=== PATIENT | male | born 1970 | race Caucasian/White ===

== ENCOUNTER 2021-12-19 12:45 | Outpatient (CLI) | payer BC, MEDICAID, SELFPAY ==
--- NOTE | 2021-12-19 13:41 | XR_ITS ---
WS: [id number] XR lumbar spine 2-3V* [id number] REASON FOR EXAM: DORSALGIA FINDINGS: Mild rotatory scoliosis convex left. No significant vertebral body abnormality. Narrowing of the intervertebral disc spaces L3-S1 with lumbar vertebral osteophytosis. No spondylolysis. 3 to 4 mm of anterolisthesis of L3 in relation to L2. 4 to 5 mm of anterolisthesis of L4 in relation to L3. 4 mm of anterolisthesis of L5 in relation to L4. Mild to moderate degenerative change in the facet joints L4-S1. XR/XR lumbar spine 2-3V* [id number] IMPRESSION: Degenerative spondylosis of the lumbar spine as above.
== END 2021-12-19 12:46 | disposition home or self-care (01) ==
PROVIDERS: PCP Nurse Practitioner Family; Visit Provider Nurse Practitioner Family
DX: M47.896 Other spondylosis, lumbar region (principal); M54.50 Low back pain, unspecified; G89.29 Other chronic pain
CPT/HCPCS: 72100

== ENCOUNTER 2022-05-30 14:21 | Outpatient (CLI) | payer BC, SELFPAY ==
--- NOTE | 2022-05-30 | USCV_ITS ---
Jayson Velasquez Age: 51 Gender: M : 1970 Exam Date: 05/30/2022 15:14 Ordering Phys: Miranda Jolly NP Technologist: Maddie Montelongo Exam Location: [facility] [place] Indication: HTN BP: / HR: 98 Rhythm: Sinus Technical Quality: Adequate MEASUREMENTS (Male / Female) Normal Values 2D ECHO LV Diastolic Diameter PLAX 3.7 cm 4.2 - 5.9 / 3.9 - 5.3 cm LV Systolic Diameter PLAX 3.0 cm LV Chamber Size 3.5 cm IVS Diastolic Thickness 1.1 cm 0.6 - 1.0 / 0.6 - 0.9 cm IVS Systolic Thickness 1.2 cm LVPW Diastolic Thickness 1.4 cm 0.6 - 1.0 / 0.6 - 0.9 cm LVPW Systolic Thickness 1.5 cm RV Chamber Size 2.0 cm LVOT Diameter 2.1 cm LV Ejection Fraction 2D Teich 44.5 % LV Ejection Fraction MOD 2C 64.0 % LV Ejection Fraction 2C AL 64.2 % LA Diameter 3.5 cm LA Width 3.3 cm LA Height 3.5 cm RA Width 2.7 cm RA Height 3.5 cm Aorta at Sinotubular Diameter 2.9 cm IVC Diameter 1.8 cm M-MODE Aortic Annulus Diameter 2.6 cm LA Ao Ratio MM 1.5 MV E Point Septal Separation 0.9 cm DOPPLER AV Peak Velocity 120.0 cm/s LVOT Peak Velocity 80.0 cm/s AV Area Cont Eq vti 2.8 cm squared AV Area Cont Eq pk 2.2 cm squared MV Area PHT 7.6 cm squared Mitral E to A Ratio 0.7 MV E' Velocity 36.5 cm/s Mitral E to MV E' Ratio 7.6 Mitral E to LV E' Lateral Ratio 6.9 Mitral E to LV E' Septal Ratio 8.7 TR Peak Velocity 81.8 cm/s TR Peak Gradient 2.7 mmHg TR Mean Velocity 58.4 cm/s TR Mean Gradient 1.5 mmHg TR Velocity Time Integral 24.5 cm TV Peak E Velocity 70.0 cm/s Right Atrial Pressure 3.0 mmHg Pulmonary Artery Systolic Pressu 5.7 mmHg RV Acceleration Time 0.1 s RV Ejection Time 0.3 s RV AcT/ET 0.4 FINDINGS Left Ventricle Normal left ventricular size and wall thickness, moderately decreased left ventricular systolic function. Global left ventricular hypokinesis. Left ventricular ejection fraction is estimated at 45 %. Grade I/IV diastolic dysfunction (abnormal relaxation filling pattern), normal to mildly elevated filling pressures. Right Ventricle The right ventricle is normal in size and function. Right Atrium The right atrium is normal in size. Left Atrium The left atrium is normal in size. Mitral Valve Structurally normal mitral valve without significant stenosis or prolapse. There is no mitral regurgitation. Aortic Valve Structurally normal aortic valve without significant sclerosis or stenosis. There is no aortic regurgitation. Tricuspid Valve Structurally normal tricuspid valve without significant stenosis or regurgitation. Pulmonary artery systolic pressure is normal. Pulmonic Valve Structurally normal pulmonic valve without significant stenosis. There is no pulmonic regurgitation. Pericardium Normal pericardium without effusion. Aorta Normal ascending aorta dimension. IVC The inferior vena cava appears normal. CONCLUSIONS 1-Normal left ventricular size and wall thickness, moderately decreased left ventricular systolic function. Global left ventricular hypokinesis. Left ventricular ejection fraction is estimated at 45 %. Grade I/IV diastolic dysfunction (abnormal relaxation filling pattern), normal to mildly elevated filling pressures. 2-There is no pericardial effusion. 3-No significant valve abnormalities. 4-Right atrial pressure is around 5 mm of mercury. Guillermina Reich MD (Electronically Signed) Final Date: 30 May 2022 20:20 S
== END 2022-05-30 14:22 | disposition home or self-care (01) ==
LOC: RAD 14:26
PROVIDERS: PCP Nurse Practitioner Family; Visit Provider Nurse Practitioner Family
DX: I10 Essential (primary) hypertension (principal)
CPT/HCPCS: 93306

== ENCOUNTER 2022-10-28 18:43 | Emergency (ER) | payer BC, MEDICAID, SELFPAY ==
[2022-10-28 18:48] VITALS: BP 136/83; PULSE 112; RESP 18; TEMP 36.7; O2SAT 97; BMI 27.4
--- NOTE | 2022-10-28 19:01 | W.ED.ABDPA2 ---
HPI - Abdominal Pain General: Chief Complaint: Abdominal Pain Stated Complaint: N\V Time Seen by Provider: 10/28/22 19:01 History of Present Illness: 52-year-old male patient comes in for 3-day history of nausea and vomiting with occasional diarrhea stool. Patient denies any fever. Patient has a history of hepatitis C, high blood pressure, depression, chronic back pain. Patient appears mildly unwell but not toxic. Patient appears in mild to no pain. Patient reports difficulty holding fluids down. Patient has a history of gallbladder removal. Patient does admit to a history of intravenous drug and alcohol use many years ago. Patient is here with his mother. Associated Symptoms: Reports diarrhea, nausea and vomiting Review of Systems General: Reports: 10 or more systems reviewed and unremarkable except in HPI and below Card: Denies: chest pain Resp: Denies: productive cough GI: Reports: nausea, vomiting and diarrhea : Denies: difficulty urinating [facility] ED PFSH: Medical History (Updated 10/28/22 @ 21:17 by JERMAINE Barreto) Psychiatric care Social History (Updated 02/11/22 @ 12:53 by Moses Michele LPN) Smoking and tobacco status: former smoker Quit status (tobacco): has quit using tobacco Year quit tobacco: 2011. Second hand smoke exposure: No Smoking risk assessment/counseling performed?: No Alcohol intake: former Desire information about alcohol rehabilitation?: No Counseling given: No Substance/Drug Use: former Date of last use: 2011 Desire information about substance/drug rehabilitation?: No Counseling given: No Physical Exam Const: COMMON NORMALS: alert HENMT: COMMON NORMALS: normocephalic HEAD & SCALP: normocephalic Neck/C-Spine: COMMON NORMALS: full ROM Resp: COMMON NORMALS: normal respiratory effort and clear to auscultation bilaterally AUSCULTATION: clear to auscultation bilaterally Cardio: COMMON NORMALS: regular rate and regular rhythm RATE: regular rate RHYTHM: regular rhythm GI: COMMON NORMALS: Soft to palpation PALPATION: Yes Soft to palpation : COMMON NORMALS: Yes no CVA tenderness BLADDER/KIDNEY EXAM: Yes no CVA tenderness Back/Pelvis: COMMON NORMALS: no CVA tenderness and thoracic and lumbar spine normal to inspection Extremity: COMMON NORMALS: normal to inspection Neuro: SENSORIUM/ORIENTATION: Yes alert Skin: COMMON NORMALS: turgor normal GENERAL SKIN EXAM: turgor normal Course ED course: 2039, reviewed labs with Dr. Simpson, intending physician. Patient had some mild elevation in bilirubin and a low white count of 1.9. He noted that patient was not neutrophilic and labs were not that abnormal especially patient's known history of hepatitis. We were considering just discharging patient with antiemetics but I reassessed patient he did have some mid epigastric tenderness still and some persistent nausea. I decided to go ahead and do a CT abdomen and pelvis for further evaluation of abdominal pain with nausea and vomiting due to the concern for infectious process or other abnormality. Vital Signs: Vital signs: Vital Signs Temperature 98.1 F 10/28/22 18:48 Pulse Rate 84 10/28/22 20:32 Respiratory Rate 24 H 10/28/22 20:32 Blood Pressure 140/86 10/28/22 20:32 Pulse Oximetry 98 10/28/22 20:32 Oxygen Delivery Me thod Nasal Cannula 10/28/22 20:32 Oxygen Flow Rate 1 10/28/22 20:32 MDM - Abdominal Pain Medical Decision Making 52-year-old male patient comes in today for complaints of nausea and vomiting for 3 days. On exam abdomen soft with mild generalized tenderness. No edema. Vital signs are normal except for some mild elevation in pulse at 112. Differential diagnosis includes gastroenteritis, colitis, gastritis, pancreatitis. Laboratory values noted a white count of 1.9, sodium was 134, potassium was 3.4, and a bilirubin of 1.7. Urinalysis was clean. CT was performed due to some mild epigastric tenderness and abnormal labs. Patient was noted to have some marked splenomegaly, hepatic steatosis, postcholecystectomy without biliary dilation, and some tiny inguinal hernias. Patient was hydrated with 2 L of IV fluids with improvement of symptoms. Recommended patient follow-up with primary care for repeat labs at his next scheduled appointment next . Patient was written for some Zofran for nausea and vomiting. After discussion with Dr. Simpson about patient's abnormality labs he recommended go ahead and adding a tick panel to rule out any tickborne illnesses for abnormal white count. Patient reported understanding of care plan and need for follow-up. I believe the labs abnormalities are most likely due to a viral syndrome such as a gastroenteritis. Lab Data 10/28/22 19:14 10/28/22 19:14 Labs/Radiology: Radiology Impressions Abdomen/Pelvis CT 10/28/22 20:41 IMPRESSION: 1. Marked splenomegaly, measuring about 18.5 cm in craniocaudad diameter. 2. A 2-3 cm peripheral hypodensity in the medial spleen. Nonspecific. Has a somewhat bandlike appearance, and could represent a splenic infarct. No perisplenic fluid or hemorrhage and no history of trauma to suggest a splenic injury. 3. Questionable hepatic steatosis, though difficult to be certain on this contrast only study. 4. Status post cholecystectomy. No biliary dilatation. 5. Tiny bilateral fat containing inguinal hernias. Laboratory Results WBC 1.9 10^3/uL (4.0-10.0) L 10/28/22 19:14 RBC 5.02 10^6/uL (4.1-5.3) 10/28/22 19:14 Hgb 15.8 g/dL (11.7-16.6) 10/28/22 19:14 Hct 43.0 % (42.0-52.0) 10/28/22 19:14 MCV 85.7 fl (80-94) 10/28/22 19:14 MCH 31.5 pg (28.0-34.0) 10/28/22 19:14 MCHC 36.7 g/dL (30.0-36.0) H 10/28/22 19:14 RDW 15.4 % (12.1-15.1) H 10/28/22 19:14 Plt Count 81 10^3/cmm (130-400) L 10/28/22 19:14 MPV 9.9 fL (7.4-10.4) 10/28/22 19:14 Neut % (Auto) 53.0 % 10/28/22 19:14 Lymph % (Auto) 32.6 % 10/28/22 19:14 [place] % (Auto) 11.9 % 10/28/22 19:14 Eos % (Auto) 0.5 % 10/28/22 19:14 Baso % (Auto) 1.0 % 10/28/22 19:14 Neut # (Auto) 1.02 10^3/uL (1.8-7.7) L 10/28/22 19:14 Lymph # (Auto) 0.6 10^3/uL (0.8-4.8) L 10/28/22 19:14 [place] # (Auto) 0.2 10^3/uL (0.2-0.9) 10/28/22 19:14 Eos # (Auto) 0.0 10^3/uL (0.0-0.8) 10/28/22 19:14 Baso # (Auto) 0.0 10^3/uL (0.0-0.1) 10/28/22 19:14 Nucleated RBC % (auto) 0 % 10/28/22 19:14 Nucleated RBCs # 0.0 /100WBC 10/28/22 19:14 Sodium 134 mmol/L (136-145) L 10/28/22 19:14 Potassium 3.4 mmol/L (3.5-5.1) L 10/28/22 19:14 Chloride 91 mmol/L (98-107) L 10/28/22 19:14 Carbon Dioxide 29 mmol/L (22-29) 10/28/22 19:14 Anion Gap 17.4 (5-19) 10/28/22 19:14 BUN 16 mg/dL (6-20) 10/28/22 19:14 Creatinine 0.8 mg/dL (0.7-1.2) 10/28/22 19:14 GFR Calculation 102.3 mL/min (90-130) 10/28/22 19:14 Glucose 117 mg/dL (65-115) H 10/28/22 19:14 Calculated Osmolality 280 mOsm/kg (285-295) L 10/28/22 19:14 Calcium 9.8 mg/dL (8.5-10.5) 10/28/22 19:14 Total Bilirubin 1.7 mg/dL (0.15-1.2) H 10/28/22 19:14 AST 65 U/L (0-40) H 10/28/22 19:14 ALT 61 U/L (0-41) H 10/28/22 19:14 Alkaline Phosphatase 76 U/L (40-130) 10/28/22 19:14 Total Protein 7.9 g/dL (6.6-8.7) 10/28/22 19:14 Albumin 4.4 g/dL (3.5-5.2) 10/28/22 19:14 Globulin 3.5 g/dL (1.3-4.6) 10/28/22 19:14 Lipase 13 U/L (13-60) 10/28/22 19:14 Urine Color Yellow (Yellow) 10/28/22 19:56 Urine Appearance Clear (CLEAR) 10/28/22 19:56 Urine pH 6 (5-7) 10/28/22 19:56 Ur Specific [place] 1.010 (1.005-1.030) 10/28/22 19:56 Urine Protein Neg (Negative) 10/28/22 19:56 Urine Glucose (UA) Norm (Normal) 10/28/22 19:56 Urine Ketones Negative (Negative) 10/28/22 19:56 Urine Blood Neg (Negative) 10/28/22 19:56 Urine Nitrate Negative (Negative) 10/28/22 19:56 Urine Bilirubin Neg (Negative) 10/28/22 19:56 Urine Urobilinogen Norm mg/dL (Negative) 10/28/22 19:56 Ur Leukocyte Esterase Negative (Negative) 10/28/22 19:56 Discharge Plan Discharge Patient Disposition: Home Clinical Impression: Leukopenia Nausea & vomiting Qualifiers: Vomiting type: unspecified Qualified Code(s): R11.2 - Nausea with vomiting, unspecified Condition: Stable Prescriptions: New ondansetron 4 mg tablet,disintegrating 4 mg PO Q8H PRN (Reason: nausea and vomiting) Qty: 10 0RF No Action hydrochlorothiazide 25 mg tablet 25 mg PO DAILY diphenhydramine HCl 50 mg capsule 50 mg PO QID PRN gabapentin 300 mg capsule 300 mg PO BID tizanidine 2 mg capsule 2 mg PO DAILY PRN hydroxyzine HCl 50 mg tablet 50 mg PO .HS PRN (Reason: insomnia/anxiety) Qty: 30 2RF buspirone 7.5 mg tablet 7.5 mg PO BID Qty: 60 2RF sertraline 100 mg tablet 100 mg PO DAILY Qty: 30 2RF Discharge Orders: Discharge ED (Routine); Ordered 10/28/22 Ordered By: Isak Jackson Referrals: Miranda Jolly NP [Primary Care Provider] - Discharge Diet: Usual diet Discharge Activity: Increase activity as tolerated Patient Instructions: Abdominal Pain (ED) Activity Restrictions/Additional Instructions: Start with clear liquid diet until nausea and vomiting and pain resolves. Drink frequent sips of fluid. Drinking electrolyte solution like Pedialyte or diluted Gatorade. Follow-up with primary care for further instructions and repeat lab work. Return to ER for high fever, blood in vomit or stool, or new concerns. Coding Level of Care Code ED Multifocal Button Generator for Conchita Recinos
[2022-10-28 19:29] LABS: Eosinophils % 0.5 %; Hemoglobin 15.8 g/dL (11.7-16.6); Lymphocytes # 0.6 10^3/uL (0.8-4.8); Lymphocytes % 32.6 %; Mean Corpuscular HGB Conc 36.7 g/dL (30.0-36.0); Mean Corpuscular Hemoglobin 31.5 pg (28.0-34.0); Mean Corpuscular Volume 85.7 fl (80-94); Mean Platelet Volume 9.9 fL (7.4-10.4); Monocytes # 0.2 10^3/uL (0.2-0.9); Monocytes % 11.9 %; Neutrophils # 1.02 10^3/uL (1.8-7.7); Nucleated Red Blood Cells % 0 %; Platelet Count 81 10^3/cmm (130-400); Red Blood Count 5.02 10^6/uL (4.1-5.3); Red Cell Distribution Width 15.4 % (12.1-15.1); White Blood Count 1.9 10^3/uL (4.0-10.0)
[2022-10-28 19:42] LABS: Alanine Aminotransferase 61 U/L (0-41); Albumin Level 4.4 g/dL (3.5-5.2); Alkaline Phosphatase 76 U/L (40-130); Anion Gap 17.4 (5-19); Aspartate Amino Transferase 65 U/L (0-40); Blood Urea Nitrogen 16 mg/dL (6-20); Calcium 9.8 mg/dL (8.5-10.5); Carbon Dioxide 29 mmol/L (22-29); Chloride 91 mmol/L (98-107); Globulin 3.5 g/dL (1.3-4.6); Glomerular Filtration Rate 102.3 mL/min (90-130); Glucose 117 mg/dL (65-115); Lipase 13 U/L (13-60); Osmolality Calculated 280 mOsm/kg (285-295); Potassium 3.4 mmol/L (3.5-5.1); Sodium 134 mmol/L (136-145); Total Bilirubin 1.7 mg/dL (0.15-1.2); Total Protein 7.9 g/dL (6.6-8.7)
[2022-10-28] MEDS: ondansetron 2 mg/ML SDV 2 mL 4 MG IVP (19:43)
[2022-10-28] MEDS: lactated ringers 1,000 ML 999 ML IV (19:46)
[2022-10-28 19:57] LABS: Slide Review Slide Review Perform
[2022-10-28 20:01] LABS: Add Urine Microscopic? NO; Charge for UA Resulting for Rev
[2022-10-28 20:05] LABS: Bilirubin Urine Neg (Negative); Blood Urine Neg (Negative); Glucose Urine UA Norm (Normal); Ketones Urine Negative (Negative); Leukocyte Esterase Urine Negative (Negative); Nitrate Urine Negative (Negative); Protein Urine Neg (Negative); Urine Appearance Clear (CLEAR); Urine Color Yellow (Yellow); Urobilinogen Urine Norm (Negative); pH Urine 6 (5-7)
[2022-10-28 20:32] VITALS: BP 140/86; PULSE 84; RESP 24; O2SAT 98
--- NOTE | 2022-10-28 20:41 | CTR_ITS ---
PROCEDURE INFORMATION: Exam: CT Abdomen And Pelvis With Contrast Exam date and time: 10/28/2022 8:49 PM Age: 52 years old Clinical indication: Pain and abnormal findings; Abnormal lab test; Nausea and vomiting; Abdominal pain; Prior surgery; Surgery date: 6+ months; Surgery type: Gb; Patient HX: Epigastric pain with n/v. Elevated liver enzymes. ; Additional info: Abd pain, abnormal liver enzymes TECHNIQUE: Imaging protocol: Computed tomography of the abdomen and pelvis with contrast. Radiation optimization: All CT scans at this facility use at least one of these dose optimization techniques: automated exposure control; mA and/or kV adjustment per patient size (includes targeted exams where dose is matched to clinical indication); or iterative reconstruction. Contrast material: OMNI 350; Contrast volume: 100 ml; Contrast route: INTRAVENOUS (IV); REPORTING DATA: Count of CT and Cardiac NM exams in prior 12 months: This patient has received 0 known CTs and 0 known cardiac nuclear medicine studies in the 12 months prior to the current study. COMPARISON: CR XR lumbar spine 2-3V* [id number] 12/19/2021 1:58 PM RADIATION DOSE METRICS: Total DLP (mGy-cm): 757.88 FINDINGS: Lungs: Lung bases are clear. Liver: Questionable hepatic steatosis, though difficult to be certain on this contrast only study. No discrete hepatic lesion identified. Gallbladder and bile ducts: Status post cholecystectomy. No biliary dilatation. Pancreas: Normal pancreas. No ductal dilation. Spleen: Marked splenomegaly, measuring about 18.5 cm in craniocaudad diameter. A 2-3 cm peripheral hypodensity in the medial spleen. Adrenal glands: Adrenal glands are normal. Kidneys and ureters: Normal kidneys. No hydronephrosis. No calculus. Stomach and bowel: No acute bowel abnormality. No obstruction. No mucosal thickening. Appendix: Normal appendix. Intraperitoneal space: No free air or free fluid. Vasculature: Unremarkable. No abdominal aortic aneurysm. Lymph nodes: No adenopathy. Urinary bladder: Normal urinary bladder. Reproductive: Normal prostate gland. Bones/joints: No acute osseous abnormality or evidence of osseous metastatic disease. Soft tissues: Tiny bilateral fat containing inguinal hernias. CT/CT abdomen pelvis w con* [id number] IMPRESSION: 1. Marked splenomegaly, measuring about 18.5 cm in craniocaudad diameter. 2. A 2-3 cm peripheral hypodensity in the medial spleen. Nonspecific. Has a somewhat bandlike appearance, and could represent a splenic infarct. No perisplenic fluid or hemorrhage and no history of trauma to suggest a splenic injury. 3. Questionable hepatic steatosis, though difficult to be certain on this contrast only study. 4. Status post cholecystectomy. No biliary dilatation. 5. Tiny bilateral fat containing inguinal hernias.
--- NOTE | 2022-10-28 20:46 | PC.NURSE ---
This RN called Penny in pharmacy, she verified that NS can be Y'ed into LR.
[2022-10-28] MEDS: iohexol 350 mg/mL 500 mL Btl (per mL) IV (20:50)
[2022-10-28 21:00] VITALS: BP 131/109; PULSE 107; RESP 22; O2SAT 100
[2022-10-28] MEDS: sodium chloride 0.9% 1,000 ML 999 ML IV (21:11)
[2022-10-28 21:30] VITALS: BP 141/86; PULSE 77; RESP 28; O2SAT 95
[2022-10-28 22:00] VITALS: BP 146/87; PULSE 83; RESP 19; O2SAT 95
[2022-10-30 15:20] LABS: Lyme AB Screen <0.90 index
[2022-11-02 21:54] LABS: E. Chaffeensis AB IGG <1:64; E. Chaffeensis AB IGM <1:20
[2022-11-06 16:10] LABS: RMSF IGG DETECTED; RMSF IGM NOT DETECTED
== END 2022-10-28 22:04 | disposition home or self-care (01) ==
PROVIDERS: Emergency Provider Nurse Practitioner Family; PCP Nurse Practitioner Family
DX: R11.2 Nausea with vomiting, unspecified (principal); D72.819 Decreased white blood cell count, unspecified
CPT/HCPCS: 36415; 74177; 80053; 81003; 83690; 85025; 86618; 86666; 86757; 96361; 96374; 99285; J2405; J7030; J7120; Q9967

== ENCOUNTER → 2024-04-06 10:13 | Outpatient (BNVA) | payer MEDICARE, SELFPAY | PROVIDERS: PCP Nurse Practitioner Family; Visit Provider Nurse Practitioner Family | DX: I10 Essential (primary) hypertension (principal); F41.1 Generalized anxiety disorder; M51.361 Other intervertebral disc degeneration, lumbar region with lower extremity pain only | CPT/HCPCS: 80053; 80061 ==

== ENCOUNTER → 2024-04-13 09:54 | Outpatient (BNVA) | payer MEDICARE, SELFPAY | PROVIDERS: PCP Nurse Practitioner Family; Visit Provider Nurse Practitioner Family | DX: R73.9 Hyperglycemia, unspecified (principal) | CPT/HCPCS: 83036 ==

== ENCOUNTER → 2024-11-04 11:03 | Outpatient (BNVA) | payer MEDICARE, SELFPAY | PROVIDERS: PCP Nurse Practitioner Family; Visit Provider Nurse Practitioner Family | DX: I10 Essential (primary) hypertension (principal) | CPT/HCPCS: 80053; 80061 ==